=== PATIENT | female | born 1970 | race Caucasian/White ===

== ENCOUNTER 2018-03-05 17:47 | Emergency (ER) | payer OTHER ==
[~2018-03-05] VITALS: Ht 172.7 cm; Wt 67.7 kg
[2018-03-05 20:23] VITALS: BP 112/81
[2018-03-05] MEDS ORDERED: CYCL-1 PO (20:31)
== END 2018-03-05 20:40 | disposition home or self-care (01) ==
LOC: ER 17:48
DX: M54.2 Cervicalgia (principal); R51 Headache; Z88.5 Allergy status to narcotic agent; Z88.1 Allergy status to other antibiotic agents; Z79.899 Other long term (current) drug therapy
CPT/HCPCS: 72125; 99284

== ENCOUNTER 2021-10-16 23:49 | Emergency (ER) | payer OTHER ==
[~2021-10-16] VITALS: Ht 172.7 cm; Wt 65.0 kg
[~2021-10-16 23:49] MED LIST: CYCL-1 PO
[2021-10-17 00:51] LABS: URINE HCG NEGATIVE (NEG)
[2021-10-17 00:54] LABS: CLARITY,URINE SLIGHTLY CLOUDY (Clear); COLOR,URINE YELLOW (Yellow); GLUCOSE, URINE NEGATIVE (Neg); KETONES,URINE >=80 mg/dl (Neg); LEUKOCYTE ESTERASE ,URINE NEGATIVE (Neg); NITRITES, URINE NEGATIVE (Neg); OCCULT BLOOD,URINE TRACE-INTACT (Neg); PH,URINE 5.5 (4.8-8.0); PROTEIN,URINE NEGATIVE (Neg); UROBILINOGEN,URINE 0.2 E.U/dL (0.2-1.0)
[2021-10-17 00:58] LABS: UA COLLECTION TYPE CLN CATCH MIDSTREAM
[2021-10-17 01:05] LABS: BACTERIA,URINE FEW /HPF (Neg); MUCUS STRANDS FEW /LPF (Neg); SQUAMOUS EPITHELIAL CELL,UR MANY /LPF (FEW); WBC,URINE 0-4 /HPF (0-4)
[2021-10-17 01:09] LABS: ALANINE AMINOTRANSFERASE 32 U/L (12-78); ALBUMIN 4.1 G/DL (3.4-5.0); ALBUMIN/GLOBULIN RATIO 1.5 (1.1-1.5); ALKALINE PHOSPHATASE 83 IU/L (46-116); ANION GAP 12 (8-16); ASPARTATE AMINO TRANSFERASE 22 U/L (10-37); BILIRUBIN,TOTAL 0.5 MG/DL (0.1-1.0); BLOOD UREA NITROGEN 13 MG/DL (7-18); BUN/CREATININE RATIO 14.9 (6.6-38.0); CALCIUM 8.9 MG/DL (8.5-10.1); CHLORIDE 102 MMOL/L (99-107); CREATININE 0.87 MG/DL (0.40-0.90); GLUCOSE 77 MG/DL (70-104); LIPASE 98 U/L (73-393); SODIUM 138 MMOL/L (135-145); TOTAL CARBON DIOXIDE 24.4 MMOL/L (24-32); TOTAL PROTEIN 6.8 G/DL (6.4-8.2); eGFR 69 ML/MIN
[2021-10-17 01:28] LABS: BASOPHILS % (AUTO) 0.2 % (0-1); EOSINOPHILS % (AUTO) 0.2 % (0-6); HEMOGLOBIN 13.5 g/dl (12.0-16.0); MEAN CORPUSCULAR HEMOGLOBIN 30.2 PG (27.0-31.0); MEAN CORPUSCULAR HGB CONC 33.7 g/dL (33.0-36.5); MEAN CORPUSCULAR VOLUME 89.6 FL (78-98); MEAN PLATELET VOLUME 7.4 FL (7.4-10.4); MONOCYTES # (AUTO) 0.7 X10'3 (0-0.9); MONOCYTES % (AUTO) 6.5 % (2-12); NEUTROPHILS # (AUTO) 9.6 X10'3 (1.8-7.7); NEUTROPHILS % (AUTO) 84.1 % (42-75); PLATELET COUNT 282 X10'3 (140-440); RED BLOOD COUNT 4.47 X10'6 (4.20-5.60); RED CELL DISTRIBUTION WIDTH 13.8 % (11.5-14.5); WHITE BLOOD COUNT 11.4 X10'3 (4.5-11.0)
[2021-10-17] MEDS ORDERED: normal saline 1000ML IV soln IVB ONE (02:00)
[2021-10-17] MEDS ORDERED: ondansetron/PF 4mg/2ml inj IV ONE (02:00)
[2021-10-17] MEDS ORDERED: ketorolac trometh. 30mg/ml inj. IV ONE (02:00)
--- NOTE | 2021-10-17 02:07 | NUR ---
PT IN [place]
[2021-10-17] MEDS ORDERED: CIPR-259 PO (02:54)
[2021-10-17] MEDS ORDERED: HYDR-3964 PO (02:54)
[2021-10-17] MEDS ORDERED: METR-159 PO (02:54)
[2021-10-17] MEDS ORDERED: ONDA4TAB12 PO (02:54)
[2021-10-17] MEDS ORDERED: metroNIDAZOLE 500mg tablet PO ONE (02:55)
[2021-10-17] MEDS ORDERED: ciprofloxacin 250mg tablet PO ONE (02:55)
[2021-10-17 03:42] VITALS: BP 112/75
== END 2021-10-17 03:46 | disposition home or self-care (01) ==
LOC: ER 23:50
DX: K57.32 Diverticulitis of large intestine without perforation or abscess without bleeding (principal); N83.201 Unspecified ovarian cyst, right side; R10.32 Left lower quadrant pain; R50.9 Fever, unspecified; Z98.890 Other specified postprocedural states; Z88.5 Allergy status to narcotic agent; Z88.1 Allergy status to other antibiotic agents; Z79.2 Long term (current) use of antibiotics; Z79.899 Other long term (current) drug therapy
CPT/HCPCS: 36415; 74176; 80053; 81001; 81025; 83690; 85025; 96374; 96375; 99284; J1885; J2405; J7030

== ENCOUNTER 2023-10-11 19:56 | Emergency (ER) | payer OTHER ==
[~2023-10-11] VITALS: Ht 172.7 cm; Wt 66.6 kg
[~2023-10-11 19:56] MED LIST changes: +ONDA4TAB12 PO
[2023-10-11 20:05] VITALS: TEMP 98
[2023-10-11] MEDS: BUPIVAcaine/PF 2.5mg/ml (0.25%) 10ml vial IJ ONE (22:41)
[2023-10-11] MEDS ORDERED: CEPH-585 PO (23:14)
[2023-10-11] MEDS: CefTRIAXone 1000mg IM Kit (w/lidocaine diluent) IM ONE (23:29)
[2023-10-11 23:35] VITALS: BP 120/78; PULSE 73; RESP 20; O2SAT 98
== END 2023-10-11 23:37 | disposition home or self-care (01) ==
LOC: ER 19:56
DX: S62.521B Displaced fracture of distal phalanx of right thumb, initial encounter for open fracture (principal); Z88.5 Allergy status to narcotic agent; Z88.1 Allergy status to other antibiotic agents; Z79.899 Other long term (current) drug therapy; W31.2XXA Contact with powered woodworking and forming machines, initial encounter; Y93.89 Activity, other specified; Y92.89 Other specified places as the place of occurrence of the external cause; Y99.8 Other external cause status
CPT/HCPCS: 12002; 73140; 96372; 99283; J0696; J3490